=== PATIENT | female | born 1950 | race American Indian/Alaskan Native ===

== ENCOUNTER 2019-02-07 11:15 | Emergency (ER) | payer OTHER, MEDICARE ==
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
[2019-02-07] MEDS ORDERED: PERCOCET 5/325 PO ONE ×2 (11:43→13:11)
[2019-02-07] MEDS ORDERED: TORADOL IM ONE (11:43)
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
[2019-02-07] MEDS ORDERED: ZESTRIL PO ONE (13:11)
[2019-02-07] MEDS ORDERED: CATAPRES PO ONE (14:00)
[2019-02-07 15:14] VITALS: BP 171/63
== END 2019-02-07 15:25 | disposition home or self-care (01) ==
LOC: ED 11:15
DX: M54.5 Low back pain (principal); M54.2 Cervicalgia; I16.0 Hypertensive urgency; I10 Essential (primary) hypertension; G89.29 Other chronic pain; Z88.0 Allergy status to penicillin; Z79.899 Other long term (current) drug therapy; Z90.711 Acquired absence of uterus with remaining cervical stump; V89.2XXA Person injured in unspecified motor-vehicle accident, traffic, initial encounter; Y93.89 Activity, other specified; Y92.488 Other paved roadways as the place of occurrence of the external cause; Y99.8 Other external cause status
CPT/HCPCS: 72100; 96372; 99283; J1885